=== PATIENT | male | born 1980 | race Caucasian/White ===

== ENCOUNTER 2018-07-13 21:45 | Emergency (ER) | payer BC | END 2018-07-13 22:45 | disposition home or self-care (01) | LOC: MADERS 21:45 | DX: J32.9 Chronic sinusitis, unspecified (principal); F17.210 Nicotine dependence, cigarettes, uncomplicated | CPT/HCPCS: 99283 ==

== ENCOUNTER 2019-09-11 19:20 | Emergency (ER) | payer BC ==
[~2019-09-11 19:20] MED LIST: Sodium Chloride Irrig Solution 250 ML BOT ONE
[2019-09-11] MEDS ORDERED: Adacel (T-DAP) 0.5 ML SYRINGE ONE (19:40)
[2019-09-11] MEDS ORDERED: Lidocaine 2% w/Epinephrine 1:200K 20 ML VIAL ONE (19:44)
[2019-09-11] MEDS ORDERED: Bacitracin 1 PK ONE (20:00)
== END 2019-09-11 20:06 | disposition home or self-care (01) ==
LOC: MADERS 19:20
DX: S81.812A Laceration without foreign body, left lower leg, initial encounter (principal); F17.220 Nicotine dependence, chewing tobacco, uncomplicated; Z23 Encounter for immunization; W26.8XXA Contact with other sharp object(s), not elsewhere classified, initial encounter
CPT/HCPCS: 12001; 90471; 90715

== ENCOUNTER 2019-09-21 19:57 | Emergency (ER) | payer BC | END 2019-09-21 21:14 | disposition home or self-care (01) | LOC: MADERS 19:57 | DX: S81.812D Laceration without foreign body, left lower leg, subsequent encounter (principal); F17.220 Nicotine dependence, chewing tobacco, uncomplicated; W26.8XXD Contact with other sharp object(s), not elsewhere classified, subsequent encounter ==

== ENCOUNTER 2019-11-16 21:52 | Emergency (ER) | payer BC | END 2019-11-16 22:35 | disposition home or self-care (01) | LOC: MADERS 21:52 | DX: L03.116 Cellulitis of left lower limb (principal); F17.220 Nicotine dependence, chewing tobacco, uncomplicated | CPT/HCPCS: 87070; 87186; 87205; 99283 ==

== ENCOUNTER 2021-05-10 21:28 | Emergency (ER) | payer BC ==
[2021-05-11 18:27] LABS: SARS-CoV-2 PCR by NAA DETECTED (NotDetected)
== END 2021-05-10 22:09 | disposition home or self-care (01) ==
LOC: MADERS 21:28
DX: U07.1 COVID-19 (principal)
CPT/HCPCS: 99283; U0003; U0005

== ENCOUNTER 2024-06-20 22:53 | Emergency (ER) | payer BC ==
[2024-06-20] MEDS ORDERED: Boostrix 0.5 ML (Tdap) VIAL (>/=7 yrs of age) ONE (23:23)
== END 2024-06-20 23:37 | disposition home or self-care (01) ==
LOC: MADERS 22:53
DX: S60.454A Superficial foreign body of right ring finger, initial encounter (principal); F17.220 Nicotine dependence, chewing tobacco, uncomplicated; W45.8XXA Other foreign body or object entering through skin, initial encounter
CPT/HCPCS: 90471; 90715